=== PATIENT | male | born 1960 | race Caucasian/White ===

== ENCOUNTER → 2022-07-14 13:14 | Outpatient (BNVA) | payer MEDICAID, SELFPAY | PROVIDERS: Family Provider Internal Medicine; PCP Internal Medicine; Referring Provider Nurse Practitioner Family; Visit Provider Physician Assistant | DX: M21.371 Foot drop, right foot (principal); M47.816 Spondylosis without myelopathy or radiculopathy, lumbar region | CPT/HCPCS: 72110; 99203 ==

== ENCOUNTER 2022-09-11 15:00 | Outpatient (CLI) | payer MEDICAID, SELFPAY ==
--- NOTE | 2022-09-11 15:15 | MR_ITS ---
WS: [id number] MRI LUMBAR SPINE NONCONTRAST TECHNIQUE: Sagittal T1, T2 and STIR imaging. Axial T1 and T2 imaging. CLINICAL INFORMATION: Narrowing of spinal canal. COMPARISON: CT lumbar July 13, 2022 FINDINGS: Mild lumbar curve. No acute compression. Incidental hemangioma L3 vertebral body. L1-L2: Mild disc bulging with mild to moderate central canal stenosis. Impingement LEFT subarticular recess. Mild facet arthropathy. Mild LEFT foraminal narrowing. L2-L3: Mild annular bulging. Mild central canal stenosis. Mild facet arthropathy. Mild RIGHT and no s ignificant LEFT foraminal narrowing. L3-L4: Slight anterolisthesis. Mild disc bulging in combination with facet arthropathy results in mod erate to severe central canal stenosis. Impingement traversing L4 nerve roots. Moderate facet arthrop athy. Small facet effusions. Moderate RIGHT and mild LEFT foraminal narrowing. L4-L5: Mild annular bulging. Moderate facet arthropathy. Mild central canal stenosis. Moderate facet arthropathy. Mild to moderate RIGHT and no significant LEFT foraminal narrowing. L5-S1: RIGHT pericentral disc extrusion extending cephalad posterior to the L5 vertebral body. This i mpinges the RIGHT S1 nerve root and exiting RIGHT L5 nerve root with severe RIGHT foraminal narrowing . Mild central canal stenosis. Mild LEFT foraminal narrowing. Mild to moderate facet arthropathy. Visualized pelvic bony structures: Normal. Paravertebral soft tissues: Normal. Mild central canal stenosis in the director systems imaging in the cervical spine. MR/MR lumbar spine wo con* [id number] IMPRESSION: 1. 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 2. Moderate to severe central canal stenosis L3-L4 with impingement traversing L4 nerve roots. Redundancy of the cauda equina nerve rootlets. 3. RIGHT pericentral disc extrusion L5-S1 with migration of disc material post erior to the L5 vertebral body. This impinges the RIGHT L5 and S1 nerve roots. Severe RIGHT L5-S1 foraminal narrowing. 4. Mild central canal stenosis L1-L2 3 and L4-L5. 5. [id number] RIGHT L3-L4 and RIGHT L4-L5 foraminal narrowing.
== END 2022-09-11 15:01 | disposition home or self-care (01) ==
PROVIDERS: Visit Provider Physician Assistant
DX: M48.061 Spinal stenosis, lumbar region without neurogenic claudication (principal); M51.27 Other intervertebral disc displacement, lumbosacral region
CPT/HCPCS: 72148

== ENCOUNTER → 2022-09-15 10:42 | Outpatient (BNVA) | payer MEDICAID, SELFPAY | PROVIDERS: Visit Provider Physician Assistant | DX: M48.061 Spinal stenosis, lumbar region without neurogenic claudication (principal); M21.371 Foot drop, right foot; M51.27 Other intervertebral disc displacement, lumbosacral region | CPT/HCPCS: 99213 ==

== ENCOUNTER → 2022-10-27 15:20 | Outpatient (BNVA) | payer MEDICAID, SELFPAY | PROVIDERS: Visit Provider Orthopaedic Surgery | DX: M48.061 Spinal stenosis, lumbar region without neurogenic claudication (principal) | CPT/HCPCS: 99214 ==

== ENCOUNTER → 2023-03-17 15:33 | Outpatient (BNVA) | payer MEDICAID, SELFPAY | PROVIDERS: Visit Provider Dermatology | DX: D22.39 Melanocytic nevi of other parts of face (principal); L57.8 Other skin changes due to chronic exposure to nonionizing radiation; D48.5 Neoplasm of uncertain behavior of skin; L57.0 Actinic keratosis | CPT/HCPCS: 11102; 17000; 99203 ==